=== PATIENT | female | born 1980 | race African-American/Black ===

== ENCOUNTER 2017-10-18 13:10 | Emergency (ER) | payer MEDICAID ==
[2017-10-18 13:21] VITALS: BP 137/89
[2017-10-18 14:29] LABS: ABSOLUTE BASOPHILS # (AUTO) 0.1 10^3/uL (0.0-0.2); ABSOLUTE EOSINOPHILS # (AUTO) 0.2 10^3/uL (0.0-0.6); ABSOLUTE LYMPHOCYTES (AUTO) 1.7 10^3/uL (0.5-4.7); ABSOLUTE MONOCYTES (AUTO) 0.7 10^3/uL (0.1-1.4); ABSOLUTE NEUT (AUTO) 3.5 10^3/uL (1.7-8.2); BASOPHILS % (AUTO) 1.1 % (0-2); EOSINOPHILS % (AUTO) 3.7 % (0-6); HEMOGLOBIN 13.5 g/dL (12.0-15.5); LYMPHOCYTES % (AUTO) 28.2 % (13-45); MEAN CORPUSCULAR HEMOGLOBIN 34.5 pg (27.0-33.4); MEAN CORPUSCULAR HGB CONC 33.8 g/dL (32.0-36.0); MEAN CORPUSCULAR VOLUME 102 fl (80-97); PLATELET COUNT 247 10^3/uL (150-450); RED BLOOD COUNT 3.92 10^6/uL (3.72-5.28); RED CELL DISTRIBUTION WIDTH 13.4 % (11.5-14.0); TOTAL CELLS COUNTED % (AUTO) 100 %; WHITE BLOOD COUNT 6.2 10^3/uL (4.0-10.5)
[2017-10-18 14:53] LABS: ANION GAP 8 (5-19); BLOOD UREA NITROGEN 13 mg/dL (7-20); CALCIUM 9.8 mg/dL (8.4-10.2); CARBON DIOXIDE 27 mmol/L (22-30); CHLORIDE 104 mmol/L (98-107); GLUCOSE 95 mg/dL (75-110); POTASSIUM 4.1 mmol/L (3.6-5.0); SODIUM 139.4 mmol/L (137-145)
--- NOTE | 2017-10-18 14:54 | ER Document Report ---
ED GI/ - General Chief Complaint: Vaginal Bleeding Stated Complaint: VAGINAL BLEEDING, ABDOMINAL PAIN Time Seen by Provider: 10/18/17 14:09 Mode of Arrival: Ambulatory Information source: Patient TRAVEL OUTSIDE OF THE [place] IN LAST 30 DAYS: No - HPI Patient complains to provider of: Vaginal bleeding Onset: This morning - 329 Timing/Duration: Sudden, Persistent Quality of pain: Cramping - TRANSIENT, NONE NOW Severity at maximum: Mild Severity in ED: None Context: Other - OBSERVED I.U.D. IN TOILET BOWL Location: Pelvis Vaginal bleeding (Compared to normal period): Heavier, Passing clots Menstrual period history: Irregular Associated symptoms: None. denies: Dizzy, Syncope Exacerbated by: Denies Relieved by: Denies Similar symptoms previously: No Recently seen / treated by doctor: No - Related Data Allergies/Adverse Reactions: No Known Allergies Allergy (Unverified 10/18/17 13:12) Past Medical History - General Information source: Patient - Social History Smoking Status: Current Every Day Smoker Cigarette use (# per day): Yes Chew tobacco use (# tins/day): No Smoking Education Provided: No Frequency of alcohol use: Social Drug Abuse: None Lives with: Alone Family History: None Patient has suicidal ideation: No Patient has homicidal ideation: No - Past Medical History Cardiac Medical History: Reports: None Pulmonary Medical History: Reports: None EENT Medical History: Reports: None Neurological Medical History: Reports: None Endocrine Medical History: Reports: None Renal/ Medical History: Reports: None. Denies: Hx Peritoneal Dialysis Malignancy Medical History: Reports: None GI Medical History: Reports: None Musculoskeltal Medical History: Reports None Skin Medical History: Reports None Psychiatric Medical History: Reports: None Surgical Hx: Negative Review of Systems - Review of Systems Constitutional: No symptoms reported EENT: No symptoms reported Cardiovascular: No symptoms reported Respiratory: No symptoms reported Gastrointestinal: No symptoms reported Genitourinary: See HPI Female Genitourinary: See HPI Musculoskeletal: No symptoms reported Skin: No symptoms reported Neurological/Psychological: No symptoms reported Physical Exam - Vital signs Vitals: Temp Pulse Resp BP Pulse Ox 98.6 F 100 18 137/89 H 98 10/18/17 13:19 10/18/17 13:19 10/18/17 13:19 10/18/17 13:19 10/18/17 13:19 Interpretation: Hypertensive, Tachycardic. No: Tachypneic - General General appearance: Appears well, Alert In distress: None - HEENT Head: Normocephalic Eyes: Normal Conjunctiva: Normal - Respiratory Respiratory status: No respiratory distress - Cardiovascular Rhythm: Regular - Abdominal Inspection: Normal Distension: No distension - Genitourinary Notes: Pelvic exam deferred at patient's request. - Extremities General upper extremity: Normal inspection General lower extremity: Normal inspection - Neurological Neuro grossly intact: Yes Cognition: Normal Orientation: AAOx4 - Psychological Associated symptoms: Normal affect, Normal mood - Skin Skin Temperature: Warm Skin Moisture: Dry Skin Color: Normal Skin Turgor: Elastic Course - Re-evaluation Re-evalutation: 10/18/17 17:52 Patient states her bleeding has diminished somewhat. Continues to be pain- free. Results of laboratory and ultrasound evaluation discussed. - Vital Signs Vital signs: Temp Pulse Resp BP Pulse Ox 98.6 F 100 18 137/89 H 98 10/18/17 13:19 10/18/17 13:19 10/18/17 13:19 10/18/17 13:19 10/18/17 13:19 - Laboratory Result Diagrams: 10/18/17 14:10 10/18/17 14:10 Laboratory results interpreted by me: 10/18/17 14:10 MCV 102 H MCH 34.5 H Discharge - Discharge Clinical Impression: Intrauterine device (IUD) migration Qualifiers: Encounter type: initial encounter Qualified Code(s): T83.89XA - Other specified complication of genitourinary prosthetic devices, implants and grafts , initial encounter Fibroid, uterine Qualifiers: Uterine leiomyoma location: submucous Qualified Code(s): D25.0 - Submucous leiomyoma of uterus Condition: Stable Disposition: HOME, SELF-CARE Additional Instructions: REST, DRINK PLENTY OF FLUIDS. YOU MAY TAKE TYLENOL OR IBUPROFEN IF NEEDED FOR PAIN. FOLLOW UP WITH YOUR PRIMARY CARE PROVIDER, YOU MAY NEED REFERRAL TO A ENGINEERING DEPARTMENT CHAIR FOR FOURTHER EVALUATION AND TREATMENT. RETURN TO E.R. IF PROBLEMS. Referrals: ROSEY LOWE FNP-C [Primary Care Provider] - Follow up as needed
--- NOTE | 2017-10-18 16:41 | RADIOLOGY REPORT (SQ) ---
EXAM DESCRIPTION: U/S NON OB PEL TV W/DOPPLER COMPLETED DATE/TIME: 10/18/2017 4:25 pm REASON FOR STUDY: Mirena fell out vaginal bleeding COMPARISON: None. TECHNIQUE: Dynamic and static grayscale images acquired of the pelvis via transvaginal approach and recorded on PACS. Additional selected color Doppler and spectral images recorded. LIMITATIONS: None. FINDINGS: UTERUS: Uterus measures 10.7 x 4.8 x 4 cm in size. Along the dorsal aspect of the uterine body, a hypoechoic 1.5 cm fibroid abuts the dorsal aspect of the endometrium. ENDOMETRIAL STRIPE: No focal or generalized thickening. No masses. No IUD is identified. CERVIX: Closed, 3.3 cm in length. Tiny nabothian cysts are present RIGHT OVARY: No abnormal masses. Right ovary is 4.7 x 2.6 x 2.8 cm in size. RIGHT OVARY DOPPLER: Normal arterial vascular flow without evidence for torsion. LEFT OVARY: No abnormal masses. Left ovary is 3.8 x 3.8 x 1.4 cm in size. LEFT OVARY DOPPLER: Normal arterial vascular flow without evidence for torsion. FREE FLUID: None noted. OTHER: No other significant finding. IMPRESSION: No IUD is identified in the uterus or cervix 1.5 cm submucosal fibroid. Normal endometrial stripe Normal ovaries TECHNICAL DOCUMENTATION: JOB ID: [id number] [employer]- All Rights Reserved Reading location - IP/workstation name: [email or web address]
== END 2017-10-18 17:47 | disposition home or self-care (01) ==
LOC: ER 13:10
DX: D25.0 Submucous leiomyoma of uterus (principal); T83.89XA Other specified complication of genitourinary prosthetic devices, implants and grafts, initial encounter; Y76.8 Miscellaneous obstetric and gynecological devices associated with adverse incidents, not elsewhere classified; F17.210 Nicotine dependence, cigarettes, uncomplicated
CPT/HCPCS: 36415; 76830; 80048; 84703; 85025; 93976; 99284